=== PATIENT | female | born 2000 | race Caucasian/White ===

== ENCOUNTER → 2021-05-05 | Outpatient (CLI) | payer OTHER ==
[~2021-05-05] MED LIST: BENTYL 10MG CAP10 MG PO; NEXIUM40 MG PO; OMEPRAZOLE20 MG PO; ONDANSETRON ODT4 MG PO; PREDNISONE 50 M50 MG PO; PRENATAL VITAM1 EAC8 PO; ZITHROMAX250 MG PO; ZOFRAN ODT4 MG PO
[2021-05-05 16:57] LABS: HEMOGLOBIN 13.6 gm/dl (12.3-15.3); RED BLOOD COUNT 4.5 M/UL (4.00-5.10); WHITE BLOOD COUNT 8.1 K/UL (4.5-11.0)
[2021-05-05 17:15] LABS: BUN/CREATININE RATIO 14 (0-10)
[2021-05-07 08:10] LABS: T3 UPTAKE 23 % (24-39); VITAMIN D, 25-HYDROXY 23.4 ng/mL (30.0-100.0)
[2021-05-08 15:12] LABS: THYROGLOBULIN ANTIBODY <1.0 IU/mL (0.0-0.9); THYROID PEROXIDASE (TPO) AB <9 IU/mL (0-34)
[2021-05-15 23:11] LABS: 25-HYDROXY, VITAMIN D 29 ng/mL (.); 25-HYDROXY, VITAMIN D-2 <1.0 ng/mL (.); 25-HYDROXY, VITAMIN D-3 29 ng/mL (.)
== END ==
LOC: LAB 14:57
PROVIDERS: Registered Nurse Administrator
DX: F32.1 Major depressive disorder, single episode, moderate (principal); Z79.899 Other long term (current) drug therapy
CPT/HCPCS: 80053; 80061; 80076; 82306; 82607; 82746; 83036; 84439; 84443; 84479; 85027; 86376; 86800

== ENCOUNTER → 2021-07-19 | Outpatient (CLI) | payer OTHER | LOC: KOH-I 09:42 | DX: R10.11 Right upper quadrant pain (principal) | CPT/HCPCS: 76705 ==

== ENCOUNTER → 2022-06-15 | Outpatient (CLI) | payer OTHER ==
[~2022-06-15] MED LIST changes: +CYCLOBENZAPRINE10 MG PO; +MACROBID 100 M100 MG PO
== END ==
LOC: GENOP 17:52
DX: O47.03 False labor before 37 completed weeks of gestation, third trimester (principal); Z3A.30 30 weeks gestation of pregnancy
CPT/HCPCS: 81001; 82731; 84112; G0463